=== PATIENT | female | born 1975 | race African-American/Black ===

== ENCOUNTER → 2021-03-24 | Outpatient (CLI) | payer OTHER ==
[~2021-03-24] MED LIST: APAP500 PO; CITRANATAL B-C1 EAC1 PO; DERMOPLAST SPRA56 ML; HYDROCORTISONE30 G9 RE; IBUPROFEN 800800 M1 PO; LANOLIN56 GM; NORCO 5-325 TA1 EACH; NORCO 5-325 TA1 EACH PO; TUCKS1 EAC1 TP; VISTARIL 25 MG25 M1 PO; VISTARIL50 MG PO; ZOLOFT 50 MG TA50 M1 PO
== END ==
LOC: SJCVCIMAG 08:31
PROVIDERS: ATTEND Internal Medicine Rheumatology
DX: I34.0 Nonrheumatic mitral (valve) insufficiency (principal); R22.40 Localized swelling, mass and lump, unspecified lower limb